=== PATIENT | female | born 1935 | race Caucasian/White ===

== ENCOUNTER → 2020-03-22 09:35 | Outpatient (CLI) | payer MEDICARE, SELFPAY ==
--- NOTE | 2020-03-22 09:45 | RAD_ITS ---
STUDY: AIR-CONTRAST UPPER GI SERIES. REASON FOR EXAM: Female, 85 years old. CHRONIC EPIGASTRIC PAIN, DYSPHAGIA -- 70 FLUORO SEC, 18.98mGy, 20 FLUORO IMAGES FLUOROSCOPY TIME (if supplied): ( 19 seconds ) minutes/seconds TECHNIQUE: The patient ingested barium. Multiple images of the esophagus, stomach and duodenum were obtained. COMPARISON: None. FINDINGS: The esophagus is unremarkable. There is no evidence of obstruction. No evidence of gastroesophageal reflux. The stomach and duodenum are unremarkable. No evidence of ulceration. No mass lesion is seen. RAD/Upper GI Dual Contrast IMPRESSION: Unremarkable air-contrast upper GI series. Electronically Signed: Yang Murphy, at 12:51 EDT , Service support ,
== END ==
PROVIDERS: PCP Nurse Practitioner Primary Care; Referring Provider Internal Medicine Gastroenterology; Visit Provider Internal Medicine Gastroenterology
DX: R10.13 Epigastric pain (principal)
CPT/HCPCS: 74246